=== PATIENT | female | born 1980 | race Caucasian/White ===

== ENCOUNTER 2020-12-17 17:53 | Inpatient (IN) | payer OTHER ==
[~2020-12-17] VITALS: Ht 162.6 cm; Wt 63.0 kg
[2020-12-17 17:54] VITALS: BP 147/76
[2020-12-17] MEDS ORDERED: NOHOMEMEDICATIONS (18:02)
[2020-12-17 18:14] LABS: ABSOLUTE NEUTROPHILS 16.7 thou/uL (1.4-8.2); BASOPHILS 0.3 % (0.0-2.0); EOSINOPHILS 0.4 % (0.0-3.0); HEMATOCRIT 40.2 % (37.0-47.0); HEMOGLOBIN 13.7 gm/dL (12.0-15.0); LYMPHOCYTES 2.9 % (24.0-44.0); MCH 31.9 pg (26.0-34.0); MCV 93.9 fL (80.0-100.0); MONOCYTES 0.7 % (1.0-8.0); PLATELET COUNT 256 thou/uL (150-400); POLYS 95.7 % (36.0-66.0); RBC 4.28 mil/uL (4.20-5.00); WBC 17.4 thou/uL (4.0-11.0)
[2020-12-17 18:23] LABS: CALCIUM 9.1 mg/dL (8.5-10.1); CREATININE 1.1 mg/dL (0.6-1.0); POTASSIUM 3.6 mmol/L (3.5-5.1)
[2020-12-17 18:29] LABS: ALBUMIN 3.7 g/dL (3.4-5.0); DIRECT BILIRUBIN 0.2 mg/dL (<0.1-0.2); TOTAL BILIRUBIN 1.3 mg/dL (0.2-1.0); TOTAL PROTEIN 7.1 g/dL (6.4-8.2)
[2020-12-17 19:59] VITALS: BP 152/67
--- NOTE | 2020-12-17 20:19 | NUR ---
ATTEMPTED TO CALL REPORT AT THIS TIME NO ANSWER. PT TAKEN TO THE FLOOR AT THIS TIME.
--- NOTE | 2020-12-17 22:35 | NUR ---
PT ADMITTED TO THE UNIT AT 2039. PT IS A/O X4 AND IS UP SBA TO THE BR. C/O SEVERE PAIN TO RUQ OF THE ABDOMEN. PHYSCIAN NOTIFIED. NEW ORDERS FOR PAIN MEDICATION TO BE GIVEN Q3 PRN. ADMISSION IS COMPLETED. MEDICATION GIVEN PER OCT. WILL CONTINUE TO MONITOR.
[2020-12-18 01:03] LABS: URINE BILIRUBIN NEGATIVE (Negative); URINE BLOOD NEGATIVE (Negative); URINE CLARITY CLEAR; URINE COLOR YELLOW; URINE GLUCOSE-RANDOM* NEGATIVE (Negative); URINE KETONES TRACE (Negative); URINE LEUKOCYTES-REFLEX NEGATIVE (Negative); URINE NITRITE-REFLEX NEGATIVE (Negative); URINE PROTEIN (DIPSTICK) NEGATIVE (Negative); URINE SPECIFIC GRAVITY <= 1.005 (1.005-1.035); URINE UROBILINOGEN 0.2 E.U./dl (0.2-1.0)
[2020-12-18 05:24] LABS: HEMATOCRIT 36.3 % (37.0-47.0); HEMOGLOBIN 12.1 gm/dL (12.0-15.0); MCH 31.9 pg (26.0-34.0); MCHC 33.3 g/dL (28.0-37.0); MCV 95.8 fL (80.0-100.0); RBC 3.79 mil/uL (4.20-5.00); RDW 12.1 % (10.5-14.5); WBC 22.7 thou/uL (4.0-11.0)
[2020-12-18 05:26] LABS: CALCIUM 8.2 mg/dL (8.5-10.1); CREATININE 0.9 mg/dL (0.6-1.0); POTASSIUM 3.7 mmol/L (3.5-5.1)
[2020-12-18 07:00] VITALS: BP 115/63
[2020-12-18 16:00] VITALS: BP 107/71
--- NOTE | 2020-12-18 19:35 | NUR ---
Assumed pt care this am, VS stable. Pain managed with medications, partial relief is noted. No surgery is needed as per MD, Diet resumed pain still noted but of lesser degree. IV removed and placed on the right fore arm as per pt request. Diet and medications are tolerated well, poc followed. Endorsed to the night nurse.
[2020-12-18 19:40] VITALS: BP 103/62
--- NOTE | 2020-12-18 23:43 | NUR ---
ASSESSED AT START OF SHIFT. PT UP ADLIB. RATES PAIN 7/10 MANAGE BY IV MEDICATION. IV INTACT AND FLUIDS INFUSING. CALL LIGHT AT REACH AND REPORT GIVEN TO INCOMING RN.
--- NOTE | 2020-12-19 04:49 | NUR ---
UPON SHIFT REPORT, PT SLEEPING IN BED. PT NOTIFIED STAFF WITH REPORT OF 6/10 RIGHT ABDOMINAL PAIN. PT RECEIVING PRN IV MORPHINE Q3HR WITH PRN APAP Q6HR AVAILABLE. PT DENIES SOB WHILE ON ROOM AIR. PT TOLERATING PO INTAKE OF FLUIDS AND REGULAR DIET WITHOUT ISSUE. PT WITHOUT NAUSEA OR EMESIS. PT AMBULATING INDEPENDENTLY IN ROOM AND TO BATHROOM, RESTING IN BED OTHERWISE, FREQUENT REPOSITIONING ENCOURAGED. PT NOTED TO SHIFT INDEPENDENTLY WHILE IN BED. PT ENCOURAGED TO NOTIFY STAFF FOR ALL NEEDS, CALL LIGHT WITHIN REACH, BED LOCKED IN LOWEST POSITION, FREQUENT MONITORING WILL CONTINUE.
[2020-12-19 07:00] VITALS: BP 99/53
[2020-12-19 08:50] LABS: HEMATOCRIT 34.8 % (37.0-47.0); HEMOGLOBIN 11.4 gm/dL (12.0-15.0); MCH 31.6 pg (26.0-34.0); MCHC 32.7 g/dL (28.0-37.0); MCV 96.6 fL (80.0-100.0); RBC 3.6 mil/uL (4.20-5.00); RDW 12.4 % (10.5-14.5); WBC 11.9 thou/uL (4.0-11.0)
[2020-12-19 09:05] LABS: ALBUMIN 2.5 g/dL (3.4-5.0); CREATININE 0.8 mg/dL (0.6-1.0); PHOSPHORUS 2.6 mg/dL (2.6-4.7); POTASSIUM 3.4 mmol/L (3.5-5.1)
[2020-12-19] MEDS ORDERED: LEVOFLOXACIN500 MG PO (09:57)
[2020-12-19] MEDS ORDERED: STIMULANT LAXA1 EACH PO (09:58)
[2020-12-19] MEDS ORDERED: FLAGYL500 M1 PO (09:58)
[2020-12-19 12:16] VITALS: BP 99/53
--- NOTE | 2020-12-19 13:10 | NUR ---
ASSUMED CARE OF PATIENT AT SHIFT CHANGE. ASSESSMENT CHARTED. MEDICATIONS ADMINISTERED PER EMAR. VSS. PATIENT A&OX4 MAKES NEEDS KNOWN, C/O ABDOMINAL PAIN RELIEVED BY SMALL BM AND PRN PAIN MED. SEEN BY PROVIDER THIS DAY AND CLEARED FOR DISCHARGE. PATIENT WANTED ANOTHER DIAGNOSTIC IMAGING TEST DONE HOWEVER PROVIDER DENIED REQUEST. PATIENT DECIDED TO DISCHARGE HOME WITH NO NEEDS. EDUCATION PROVIDED ON COLITIS AD PRESCRIPTIONS. NOO FURTHER NEEDS VOICED
--- NOTE | 2020-12-19 13:37 | NUR ---
PT ADMITTED RELATED TO RUQ ABDOMINAL PAIN. CM REVIEWED CHART AND SPOKE WITH CARE TEAM. CM MET WITH PT AT BEDSIDE THIS DAY. PT INDICATED THAT SHE RESIDES IN A FIRST FLOOR APARTMENT WITH HER CHILD WITH NO STEPS. PT INDICATED SHE HAD BEEN INDEPEDNENT WITH GAIT AND ADLS COLLABORATIVE PHYSICIAN. PT INDICATED SHE HAD VISITED [facility] AND THEY HAD SUBMITTED A [place] MEDICAID APPLICATION AND PROVIDED FINIANCIAL HARDSHIP PAPERWORK. PT INDICATED SHE IS ABLE TO FILL MEDS UPON DC. NO OTHER CM ITNERVENTION INDICATED. CARE TEAM INDICATED THAT PT IS MEDICALLY STABLE TO DC HOME THIS DAY. NO OTHER CM INTERVENTION INDICATED. CASE CLOSED.
--- NOTE | 2020-12-19 14:10 | NUR ---
RN agrees with THERMAL TECHNICIAN assessment.
== END 2020-12-19 12:40 | disposition home or self-care (01) | DRG 392 ==
LOC: ER 17:53 → EROBS 19:49 → ER 20:29 → 4W 20:29
PROVIDERS: Nurse Practitioner; Surgery; ADMIT Surgery; ATTEND Surgery
DX: K52.9 Noninfective gastroenteritis and colitis, unspecified (principal); Z20.822 Contact with and (suspected) exposure to COVID-19; Z88.0 Allergy status to penicillin
CPT/HCPCS: 10040